=== PATIENT | female | born 1965 | race Two or more races ===

== ENCOUNTER 2019-05-08 14:56 | Emergency (ER) | payer OTHER ==
--- NOTE | 2019-05-08 15:02 | UC ---
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--- - History of Current Complaint Chief Complaint: UCGeneralIllness Stated Complaint: FLU SYMPTOMS Time Seen by Provider: 05/08/19 15:25 Hx Obtained From: Patient ?: No Onset/Duration: Sudden Onset, Lasting Days - 1 Severity Currently: Moderate Severity Initially: Moderate Associated Signs & Symptoms: Positive: Fever - subjective, Cough, Sore Throat, Nasal Congestion, Headache, Vomiting, Diarrhea - Allergy/Home Medications Allergies/Adverse Reactions: Allergies Allergy/AdvReac Type Severity Reaction Status Date / Time No Known Allergies Allergy Verified 05/08/19 15:10 Home Medications: Home Medications ALPRAZolam TAB* [Xanax TAB*] 0.25 mg PO BID 05/08/19 [History Confirmed 05/08/19 ] oxyCODONE TAB* [Roxycodone TAB 5 mg*] 15 mg PO Q6H PRN 05/08/19 [History Confirmed 05/08/19] PMH/Surg Hx/FS Hx/Imm Hx Previously Healthy: No GI/ History: Gastroesophageal Reflux Psychological History: Anxiety - Family History Known Family History: Positive: None - Social History Occupation: Employed Full-time Lives: With Family Alcohol Use: None Substance Use Type: None Review of Systems All Other Systems Reviewed And Are Negative: Yes Constitutional: Positive: Fever Skin: Positive: Negative Eyes: Positive: Negative ENT: Positive: Sore Throat, Ear Ache Respiratory: Positive: Cough Cardiovascular: Positive: Negative Gastrointestinal: Positive: Vomiting, Diarrhea, Nausea Genitourinary: Positive: Negative Motor: Positive: Negative Neurovascular: Positive: Negative Musculoskeletal: Positive: Arthralgia Neurological: Positive: Negative Psychological: Positive: Negative Is Patient Immunocompromised?: No Physical Exam Triage Information Reviewed: Yes Appearance: Well-Appearing, No Pain Distress, Well-Nourished Vital Signs Reviewed: Yes Eye Exam: Normal Eyes: Positive: Conjunctiva Clear ENT Exam: Normal ENT: Positive: Normal ENT inspection, Hearing grossly normal, Pharynx normal, TMs normal. Negative: Nasal congestion, Nasal drainage, Trismus, Muffled voice , Hoarse voice Dental Exam: Normal Neck exam: Normal Neck: Positive: Supple, Nontender Respiratory Exam: Normal Respiratory: Positive: Chest non-tender, Lungs clear, Normal breath sounds, No respiratory distress, No accessory muscle use Cardiovascular Exam: Normal Cardiovascular: Positive: RRR, No Murmur, Pulses Normal, Brisk Capillary Refill Abdominal Exam: Normal Abdomen Description: Positive: Nontender, No Organomegaly, Soft Musculoskeletal Exam: Normal Musculoskeletal: Positive: Strength Intact, ROM Intact, No Edema Neurological Exam: Normal Neurological: Positive: Alert, Muscle Tone Normal Psychological Exam: Normal Skin Exam: Normal Diagnostics - Laboratory Lab Results: strep and influenza a/b negative Flu Course/Dx - Course Course Of Treatment: patient is a cigarette smoker--will treat with Proventil and Zithromax--- patient is also out of routine meds for 3 weeks will rx all rx controlled--- referral to pcp provided - Differential Dx/Diagnosis Provider Diagnosis: Nicotine dependence with current use, Acute viral syndrome Discharge ED - Sign-Out/Discharge Documenting (check all that apply): Patient Departure All imaging exams completed and their final reports reviewed: No Studies - Discharge Plan Condition: Stable Disposition: HOME Prescriptions: Albuterol HFA INHALER* [Ventolin HFA Inhaler*] 2 puff INH Q4H PRN #1 mdi PRN Reason: cough Atorvastatin* [Lipitor 20 MG*] 20 mg PO DAILY #15 tab busPIRone TAB* [Buspar TAB*] 10 mg PO DAILY #15 tab hydrOXYzine HCL TAB* [Atarax TAB 50 MG *] 50 mg PO BID PRN #30 tab PRN Reason: Anxiety Ondansetron ODT TAB* [Zofran 4 MG Odt TAB*] 4 mg PO Q6H PRN #16 tab.odt MDD 4 PRN Reason: nausea Pantoprazole TAB * [Protonix TAB*] 40 mg PO DAILY #15 tab traZODone TAB* [Desyrel TAB*] 50 mg PO BEDTIME #15 tab Patient Education Materials: How to Stop Smoking (ED), Clear Liquid Diet (ED), Viral Syndrome (ED) Referrals: [facility] [Outside] - 7 Days - Billing Disposition and Condition Condition: STABLE Disposition: Home
[2019-05-08 15:10] VITALS: BP 128/74
[2019-05-08 15:36] LABS: Influenza A Molecular NEGATIVE (Negative); Influenza B Molecular NEGATIVE (Negative)
== END 2019-05-08 15:55 | disposition home or self-care (01) ==
LOC: UCEAST 14:56
DX: J02.9 Acute pharyngitis, unspecified (principal); R11.2 Nausea with vomiting, unspecified; R19.7 Diarrhea, unspecified; F41.9 Anxiety disorder, unspecified; H92.09 Otalgia, unspecified ear; R05 Cough; F17.200 Nicotine dependence, unspecified, uncomplicated; Z79.899 Other long term (current) drug therapy
CPT/HCPCS: 87651; 99202; G0463

== ENCOUNTER 2019-05-15 15:36 | Emergency (ER) | payer OTHER ==
[2019-05-15 16:03] VITALS: BP 126/68
--- NOTE | 2019-05-15 16:39 | UC ---
Respiratory Complaint HPI - HPI Summary HPI Summary: ABOUT 1 WEEK OF COUGH, CONGESTION, SORE THROAT, NAUSEA AND FATIGUE. WAS SEEN HERE 7 DAYS AGO AND TREATED FOR A VIRAL INFECTION WITH ALBUTEROL AND ZOFRAN. FLU AND STREP WERE NEG. SHE ALSO HAD HER CHRONIC MEDICATIONS REFILLED EXCEPT FOR THE CONTROLLED SUBSTANCES. SHE RETURNS TODAY STATING OVER THE PAST FEW DAYS SHE HAS LOST HER VOICE. IS REQUESTING A REFILL OF ZOFRAN. ALSO NOTICED A COLD SORE ON HER LOWER LIP THIS MORNING. STATES SHE DOES NOT RECALL EVER HAVING A COLD SORE BEFORE. - History of Current Complaint Chief Complaint: UCGeneralIllness Stated Complaint: SORE THROAT Time Seen by Provider: 05/15/19 15:57 Hx Obtained From: Patient Hx Last Menstrual Period: post Onset/Duration: Gradual Onset, Lasting Days, Still Present Timing: Constant Severity Initially: Moderate Severity Currently: Moderate Pain Intensity: 5 Pain Scale Used: 0-10 Numeric Character: Cough: Nonproductive Aggravating Factors: Nothing Alleviating Factors: Nothing Associated Signs And Symptoms: Positive: URI, Nasal Congestion, Hoarseness. Negative: Dyspnea, Fever, Wheezing - Allergies/Home Medications Allergies/Adverse Reactions: Allergies Allergy/AdvReac Type Severity Reaction Status Date / Time IVP dye Allergy can't Uncoded 05/15/19 15:50 breathe PMH/Surg Hx/FS Hx/Imm Hx Endocrine History: Dyslipidemia Respiratory History: COPD Psychological History: Depression - Surgical History Surgical History: Yes Surgery Procedure, Year, and Place: appy knee surgeries, sinus surgery, spinal surgery - Family History Known Family History: Positive: None - Social History Alcohol Use: None Substance Use Type: None Smoking Status (MU): Light Every Day Tobacco Smoker Review of Systems All Other Systems Reviewed And Are Negative: Yes Constitutional: Positive: Fatigue Skin: Positive: Negative ENT: Positive: Sore Throat, Nasal Discharge Respiratory: Positive: Cough Cardiovascular: Positive: Negative Gastrointestinal: Positive: Nausea Genitourinary: Positive: Negative Neurological: Positive: Headache Physical Exam Triage Information Reviewed: Yes Appearance: No Pain Distress, Well-Nourished, Ill-Appearing - FATIGUED Vital Signs: Initial Vital Signs Temp 97.9 F 05/15/19 15:44 Pulse 108 05/15/19 15:44 Resp 17 05/15/19 15:44 BP 126/68 05/15/19 15:44 Pulse Ox 98 05/15/19 15:44 Vital Signs Reviewed: Yes Eyes: Positive: Conjunctiva Clear ENT: Positive: Hearing grossly normal, Pharynx normal, Hoarse voice, Other - LEFT TM NORMAL. RIGHT TM OBSTRUCTED BY CERUMEN Neck: Positive: Supple, Nontender, No Lymphadenopathy Respiratory Exam: Normal Cardiovascular: Positive: Tachycardia Abdomen Description: Positive: Soft Musculoskeletal: Positive: No Edema Neurological: Positive: Alert Psychological: Positive: Age Appropriate Behavior Skin: Negative: Rashes Respiratory Course/Dx - Course Course Of Treatment: PATIENTS RESPIRATORY SYMPTOMS MAY BE VIRALLY MEDIATED BUT GIVEN THAT SHE HAS BEEN SICK FOR OVER A WEEK WE'LL GO AHEAD AND COVER WITH AN ANTIBIOTIC. PREDNISONE WILL HOPEFULLY HELP WITH HER SORE THROAT AND HOARSENESS. PATIENT ALSO HAS A COLD SORE ON HER LOWER LIP. SHE BOUGHT SOME ABREVA TODAY WHICH SHE MAY USE TOPICALLY. HAVE ALSO PRESCRIBED VALACYCLOVIR. PATIENT COUNSELED ON INFECTIOUS AN INCURABLE NATURE OF THIS CONDITION. AGAIN URGED PATIENT TO ESTABLISH WITH A PCP. WHILE SHE IS SEARCHING SHE WILL FOLLOW-UP WITH [facility] SHE WILL BE RUNNING OUT OF HER CHRONIC MEDICATIONS IN ABOUT A WEEK. - Differential Dx/Diagnosis Provider Diagnosis: Acute bronchitis, Laryngitis, Herpes labialis Discharge ED - Sign-Out/Discharge Documenting (check all that apply): Patient Departure All imaging exams completed and their final reports reviewed: No Studies - Discharge Plan Condition: Stable Disposition: HOME Prescriptions: Azithromycin 500 mg PO DAILY #5 tablet predniSONE TAB* [Deltasone 20 MG TAB*] 40 mg PO DAILY #10 tab ValACYclovir (*) [Valtrex 1 GM(*)] 2 gm PO BID #4 tab Patient Education Materials: Laryngitis (ED), Acute Bronchitis (ED), Oral Herpes Simplex Virus Infections (ED) Forms: *Work Release Referrals: [facility] [Outside] - 1 Week Additional Instructions: YOUR RESPIRATORY SYMPTOMS MAY BE VIRALLY MEDIATED BUT GIVEN THE LENGTH OF TIME YOU HAVE BEEN ILL WE WILL COVER YOU WITH ANTIBIOTICS. IF YOU START THE MEDICINE BE SURE TO TAKE IT FOR THE FULL COURSE. REST, HYDRATE, OTC MEDS NEEDED. WILL ALSO TREAT WITH PREDNISONE TO HELP WITH AIRWAY INFLAMMATION. ZOFRAN FOR NAUSEA REFILLED. SEEK FOLLOW-UP WITH YOUR PCP IF YOU ARE NOT IMPROVING OVER THE NEXT 1- 2 WEEKS. YOU HAVE A COLD SORE ON YOUR LOWER LIP. TAKE THE VALACYCLOVIR 2000 MG 2 TIMES A DAY 2 DOSES ONLY. BE AWARE THAT THIS CONDITION IS HIGHLY INFECTIOUS. AVOID ANY INTIMATE CONTACT. NO SHARING FOOD, DRINK, UTENSILS. ONCE YOU CONTRACT THIS VIRUS IT CANNOT BE CURED. IT STAYS DORMANT IN YOUR SYSTEM AND CAN REACTIVATE AT ANY TIME USUALLY WHEN YOU ARE RUNDOWN. THE MEDICINE WILL HELP YOUR BODY RESOLVE THE LESION A LITTLE QUICKER. OKAY TO USE TOPICAL ABREVA WELL. YOU MUST ESTABLISH WITH A PRIMARY CARE PHYSICIAN FOR YOUR CHRONIC CONDITIONS. CALL THE NUMBER BELOW FOR ASSISTANCE IN ESTABLISHING WITH A PCP An additional resource available to assist in finding the appropriate physician for your health care needs is the [facility] (Maile Obando). You may contact them by calling [phone]. - Billing Disposition and Condition Condition: STABLE Disposition: Home
== END 2019-05-15 16:38 | disposition home or self-care (01) ==
LOC: UCEAST 15:36
DX: J20.9 Acute bronchitis, unspecified (principal); J04.0 Acute laryngitis; B00.1 Herpesviral vesicular dermatitis; R11.0 Nausea; R51 Headache
CPT/HCPCS: 99212; G0463

== ENCOUNTER 2019-07-24 21:07 | Emergency (ER) | payer OTHER ==
--- OUTSIDE RECORDS SUMMARY | 2019-07-24 21:14 | XMS REPORT | Continuity of Care Document ---
:1965 External Reference #:[id number] Author Name RICKY Emanuel Address [address] [place] [address] Care Team Providers Name Role Phone Issac Joy MD - Family Care Team Information Paid Search Analyst Medicine Problems Description No Information Available Social History Type Date Description Comments Sex Unknown Tobacco Use Start: Unknown Less Than A Pack Per Day ETOH Use Occasional Tobacco Use Start: Unknown Patient is a current smoker, smokes every day Smoking Status Reviewed: 06/03/19 Patient is a current smoker, smokes every day Allergies, Adverse Reactions, Alerts Active Allergies Reaction Severity Comments Date IVP Dye Difficulty breathing, Hives 05/31/2019 Tree Pollen 05/31/2019 Cats 05/31/2019 Medications Active Medications SIG Qnty Indications Ordering Date Provider Xanax 1-2 tablets daily 60tabs F43.22 Otto See, 05/31/2019 0.25mg Tablets for anxiety M.D. Ambien 1 tablet as you 30tabs G47.00 Otto See, 05/31/2019 10mg Tablets need for sleeping M.D. Handicapped Permit For lifetime use 1units Lupe [place], 05/31/2019 due to inability M.D. to walk more then 200 feet without rest Albuterol Sulfate HFA take 1-2 puffs Unknown inhaled every 4 108(90Base) mcg/Act hours as needed Aerosol for shortness of breath Oxycodone HCL 1 by mouth every 6 90tabs Otto See, 15mg hours as needed M.D. Tablets for pain Hydroxyzine HCL one tablet two Unknown 50mg times a day as Tablets needed. Atorvastatin Calcium 1 by mouth every Unknown day 20mg Tablets Buspirone HCL take one tablet by Unknown 10mg mouth once a day Tablets Valacyclovir HCL 2 po twice a day Unknown 1gm Tablets Pantoprazole Sodium 1 by mouth every Unknown day 40mg Tablets DR Trazodone HCL take 1 tablet by Unknown 50mg mouth at bedtime Tablets as needed for sleep Immunizations Description No Information Available Vital Signs Date Vital Result Comment 05/31/2019 1:43pm BP Systolic 110 mmHg BP Diastolic 62 mmHg Heart Rate 90 /min Body Temperature 96.9 F Height 67 inches 5'7" Weight 169.00 lb BMI (Body Mass Index) 26.5 kg/m2 Results Description No Information Available Procedures Date Code Description Status 05/19/2017 95137913 Mammogram Completed 05/19/2016 [id number] Colonoscopy Completed Medical Devices Description No Information Available Encounters Description No Information Available Assessments Date Code Description Provider 05/31/2019 F43.22 Adjustment disorder with anxiety RICKY Emanuel 05/31/2019 G47.00 Insomnia, unspecified RICKY Emanuel 05/31/2019 M54.5 Low back pain RICKY Emanuel 05/31/2019 J06.9 Acute upper respiratory infection, unspecified RICKY Emanuel Plan of Treatment Future Appointment(s):06/14/2019 8:00 am - RICKY Emanuel at [facility]05/31/2019 - Padmini Gary, PAF43.22 Adjustment disorder with anxietyNew Medication:Xanax 0.25 mg - 1-2 tablets daily for anxietyComments:Restart Xanax - twice a day as needed Establish with [facility] or Advocacy WrdrceN88.00 Insomnia, unspecifiedNew Medication:Ambien 10 mg - 1 tablet as you need for sleepingComments:Ambien as you need for sleep, don't take with cvyudK80.5 Low back painComments:Use pain medication as you needJ06.9 Acute upper respiratory infection, unspecifiedComments:Warm teas with honey, lemonVitamin C - 2000 mg Elderberry lozengesCall if symptoms worsen or don't improveAllComments:PCMHMedication Management Patient Understands medications he 's taking? Yes Are there Barriers to Adherence? No Has the patient been asked about herbal supplements and therapies, and OTC meds? Yes Care Plan1. Patient has been queried about patient's goals/preferences and functional/lifestyle goals at relevant visits. Yes If relevant, describe: N/A2. Treatment goals as explained to the patient: above3. Are there barriers to meeting treatment goals? No If Yes, please describe:4. Self-Management goals as described to the patient: Yes As always, we strongly encourage a healthy diet and making physical activity a part of your every day life. If you have questions about how or where to start, please contact the office.Follow up: 2 weeks to discuss other issues and establish Functional Status Description No Information Available Mental Status Description No Information Available Referrals Description No Information Available
--- OUTSIDE RECORDS SUMMARY | 2019-07-24 21:14 | XMS REPORT | Continuity of Care Document ---
:1965 External Reference #:[id number] Author Name RICKY Emanuel Address [address] [place] [address] Care Team Providers Name Role Phone Issac Joy MD - Family Care Team Information News Writer [phone] Medicine Problems Description No Information Available Social [...] Medications SIG Qnty Indications Ordering Date Provider Physical Therapy evaluate and treat 1unrakesh [place] 06/21/2019 tight fibrous MD Benita tissue of the lower back Xanax 1-2 tablets daily 60tabs F43.22 Otto See, 05/31/2019 0.25mg Tablets for anxiety M.D. Ambien 1 tablet as you 30tabs G47.00 Otto See, 05/31/2019 10mg Tablets need for sleeping M.D. Handicapped Permit For lifetime use 1units Lupe [place], 05/31/2019 due to inability M.D. to walk [...] needed. Atorvastatin Calcium 1 by mouth every 90tabs Issac T. day MD Benita 20mg Tablets Buspirone HCL take one tablet by Unknown 10mg mouth once a day Tablets Valacyclovir HCL 2 po twice a day Unknown 1gm Tablets Pantoprazole Sodium 1 by mouth every 90tabs Issac T. day MD Benita 40mg Tablets DR Trazodone HCL take 1 tablet by Unknown 50mg mouth at bedtime Tablets as needed for sleep [place] Unknown [place]-3 Krill Oil Extra Strength 500mg Capsules Vitamin C take 1 tablet by Unknown 500mg Tablets mouth once daily supplement Vitamin E every day Unknown 1000Unit Capsules Immunizations Description No Information Available Vital Signs Date Vital Result Comment 06/21/2019 8:21am BP Systolic 120 mmHg BP Diastolic 78 mmHg Heart Rate 88 /min Body Temperature 96.0 F Respiratory Rate 20 /min Height 67 inches 5'7" Weight 170.50 lb BMI (Body Mass Index) 26.7 kg/m2 Results Test Acquired Date Facility Test Result H/L Range Note Lipid Profile 06/21/2019 [facility]) Cholesterol 145 mg/dL 120- 200 Triglycerides 133 mg/dL 30-200 HDL Cholesterol 44 mg/dL 30-85 LDL (Calculated) 74 CALC 0-129 VLDL Cholesterol 27 mg/dL 0-50 HDL Risk Factor 3.3 CALC 0.0-4.4 Comprehensive Metabolic 06/21/2019 [facility] Louise([facility]) Sodium 141 mEq/L 134-149 Prof Potassium 4.1 mEq/L 3.6-5.5 Chloride 102 mEq/L 94-112 Carbon Dioxide 21 mEq/L 21-32 Glucose 114 mg/dL High 70-105 BUN 19 mg/dL 6-26 Creatinine 0.6 mg/dL 0.6-1.4 BUN/Creat Ratio 31.7 CALC 8.0-36.0 Calcium 9.6 mg/dL 8.9-10.6 Total Protein 7.1 g/dL 6.4-8.3 Albumin 4.2 g/dL 3.8-5.5 Globulin 2.9 g/dL 2.0-4.8 A/G Ratio 1.4 CALC 0.6-2.3 Alk. Phosphatase 81 U/L 30-110 Alt (SGPT) 16 U/L 7-35 Ast (Sgot) 15 U/L 5-34 Total Bilirubin 0.4 mg/dL 0.2-1.3 GFR Non- >60 ml/min/1.73m^ >=60 GFR >60 ml/min/1.73m^ >=60 CBC Electronic Fma 06/21/2019 [facility] Louise(a) WBC 9.5 x10^3/UL 4.0- 10.0 RBC 4.27 x10^6/UL 3.93-6.00 HGB 12.7 g/dL 12.0-17.0 HCT 38 % 35-50 MCV 89.9 fL 80.0-95.0 MCH 29.7 pg 25.6-32.2 MCHC 33.1 g/dL 32.2-36.0 RDW-CV 14.4 % 11.6-14.4 PLT 375 x10^3/UL 163-400 MPV 9.2 fL Low 9.4-12.4 Handy# 5.56 x10^3/UL 1.56-6.13 Lymph# 3.00 x10^3/UL 1.18-3.74 [place]ilion# 0.54 x10^3/UL 0.24-0.82 Eos # 0.4 x10^3/UL 0.0-0.5 Baso # 0.05 x10^3/UL 0.01-0.08 Handy% 58.5 % 34.0-70.0 Lymph % 31.5 % 20.0-52.0 [place]% 5.7 % 5.0-12.0 Eos% 3.7 % 0.7-7.0 Baso% 0.5 % 0.1-1.2 Laboratory test 06/21/2019 Robbin Louise([facility]) Free T4 0.91 ng/dL 0.75- 1.54 finding TSH 1.07 mIU/L 0.50-6.00 Cece Panel-LD 06/21/2019 [facility] Antinuclear <pending> ([facility]) [address] Antibodies (Cece), [place] [address] By Ifa (904)- - Anti Dna (DS) <pending> Procedures Date Code Description Status 05/19/2017 [id number] Mammogram Completed 05/19/2016 [id number] Colonoscopy Completed Medical Devices Description No Information Available Encounters Type Date Location Provider Dx Diagnosis Office Visit 05/31/2019 [facility] Office Padmini Gary, F43.22 Adjustment 1:45p PA disorder with anxiety G47.00 Insomnia, unspecified M54.5 Low back pain J06.9 Acute upper respiratory infection, unspecified Assessments Date Code Description Provider 06/21/2019 F43.22 Adjustment disorder with anxiety RICKY Emanuel 06/21/2019 M54.5 Low back pain RICKY Emanuel 06/21/2019 G47.00 Insomnia, unspecified RICKY Emanuel 06/21/2019 L73.2 Hidradenitis suppurativa RICKY Emanuel 06/21/2019 Z00.01 Encounter for general adult medical examination RICKY Emanuel with abnormal findings 06/21/2019 Z12.31 Encounter for screening mammogram for malignant RICKY Emanuel neoplasm of breast 05/31/2019 F43.22 Adjustment disorder with anxiety RICKY Emanuel 05/31/2019 G47.00 Insomnia, unspecified RICKY Emanuel 05/31/2019 M54.5 Low back pain RICKY Emanuel 05/31/2019 J06.9 Acute upper respiratory infection, unspecified RICKY Emanuel Plan of Treatment Future Appointment(s):07/19/2019 8:30 am - RICKY Emanuel at [facility]1206/21/2019 - Padmini Gary, PAF43.22 Adjustment disorder with anxietyComments:Continue Xanax - twice a day as needed Establish with [facility] or Advocacy IzxybfL18.5 Low back painComments:Use pain medication as you need See physical therapy for massage to help get the knots out. Massage, heat all can help Follow up in 1 znlbkI71.00 Insomnia, hhpwtakfljkL12.2 Hidradenitis suppurativaComments:[facility] Encounter for general adult medical examination with abnormal findingsComments: Check labs gkyoaD43.31 Encounter for screening mammogram for malignant neoplasm of breastComments:Order mammogram today- you will receive a phone call [facility] [place]Address: [address], [place] [address] ?? Closes 4PMPhone: AllNew Medication:Physical Therapy - evaluate and treat tight fibrous tissue of the lower backComments:PCMHMedication Management Patient Understands medications he's taking? Yes Are there Barriers to Adherence? No Has the patient been asked about herbal supplements and therapies, and OTC meds ? Yes Care Plan1. Patient has been queried about patient's goals/ preferences and functional/lifestyle goals at relevant visits. Yes [...] or where to start, please contact the office. 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
[2019-07-24 21:18] VITALS: BP 117/73
[2019-07-24 21:40] LABS: Influenza A Molecular POSITIVE (Negative)
[2019-07-24] MEDS ORDERED: Oseltamivir CAP* 75 MG CAP PO ONE ×2 (21:46)
--- NOTE | 2019-07-24 21:49 | UC ---
FLU HPI - HPI Summary HPI Summary: ONSET YESTERDAY OF LOW GRADE FEVER, SORE THROAT, EAR PAIN, BODY ACHES, FATIGUE AND HEADACHE. HAS BEEN COUGHING AND CONGESTED FOR A FEW DAYS. NO FLU SHOT THIS SEASON. - History of Current Complaint Chief Complaint: UCRespiratory Stated Complaint: FEVER & CONGESTION Time Seen by Provider: 07/24/19 21:24 Hx Obtained From: Patient Hx Last Menstrual Period: post Onset/Duration: Gradual Onset, Lasting Days, Still Present Severity Currently: Moderate Severity Initially: Moderate Pain Intensity: 9 Pain Scale Used: 0-10 Numeric Associated Signs & Symptoms: Positive: Fever, Myalgia, Cough, Sore Throat, Nasal Congestion, Headache - Allergy/Home Medications Allergies/Adverse Reactions: Allergies Allergy/AdvReac Type Severity Reaction Status Date / Time cat dander Allergy hives, red Verified 07/24/19 21:18 eyes pollen extracts Allergy hives, red Verified 07/24/19 21:18 eyes IVP dye Allergy can't Uncoded 07/24/19 21:18 breathe Home Medications: Home Medications ALPRAZolam TAB* [Xanax TAB*] 0.25 mg PO BID 05/08/19 [History Confirmed 07/24/19 ] Albuterol HFA INHALER* [Ventolin HFA Inhaler*] 2 puff INH Q4H PRN #1 mdi [Rx Confirmed 07/24/19] Atorvastatin* [Lipitor 20 MG*] 20 mg PO DAILY #15 tab 05/08/19 [Rx Confirmed 12/05] Pantoprazole TAB * [Protonix TAB*] 40 mg PO DAILY #15 tab 05/08/19 [Rx Confirmed 07/24/19] busPIRone TAB* [Buspar TAB*] 10 mg PO DAILY #15 tab 05/08/19 [Rx Confirmed 07/23] hydrOXYzine HCL TAB* [Atarax TAB 50 MG *] 50 mg PO BID PRN #30 tab 05/08/19 [Rx Confirmed 07/24/19] oxyCODONE TAB* [Roxycodone TAB 5 mg*] 15 mg PO Q6H PRN 05/08/19 [History Confirmed 07/24/19] traZODone TAB* [Desyrel TAB*] 50 mg PO BEDTIME #15 tab 05/08/19 [Rx Confirmed ] ValACYclovir (*) [Valtrex 1 GM(*)] 2 gm PO BID #4 tab 05/15/19 [Rx Confirmed 12/05] Ibuprofen TAB* [Advil TAB*] 400 mg PO PRN 07/24/19 [History] Ondansetron ODT TAB* [Zofran Odt TAB*] 4 mg PO Q6H PRN #20 tab.odt 07/24/19 [Rx] Ondansetron TAB* [Zofran 4 MG Tab*] 4 mg PO PRN 07/24/19 [History] Oseltamivir CAP* [Tamiflu CAP*] 75 mg PO BID #8 cap 07/24/19 [Rx] Phenylephrine/Dm/Acetaminop/GG [Tylenol Cold-Flu Severe Caplet] 1 each PO PRN [History] guaiFENesin ER TAB [Mucinex*] PRN 07/24/19 [History] PMH/Surg Hx/FS Hx/Imm Hx Previously Healthy: Yes - Surgical History Surgical History: Yes Surgery Procedure, Year, and Place: appendectomy, four knee surgeries, sinus surgery, spinal surgery - Family History Known Family History: Positive: None - Social History Alcohol Use: Occasionally Substance Use Type: None Smoking Status (MU): Current Every Day Smoker Type: Cigarettes Amount Used/How Often: 1/2 ppd Review of Systems All Other Systems Reviewed And Are Negative: Yes Constitutional: Positive: Fever, Chills, Fatigue ENT: Positive: Sore Throat, Ear Ache, Nasal Discharge Respiratory: Positive: Cough Cardiovascular: Positive: Negative Gastrointestinal: Positive: Nausea Musculoskeletal: Positive: Myalgia Neurological/Mental Status: Positive: Headache Physical Exam Triage Information Reviewed: Yes Appearance: Well-Appearing, No Pain Distress, Well-Nourished Vital Signs: Initial Vital Signs Temp 98 F 07/24/19 21:12 Pulse 113 07/24/19 21:12 Resp 18 07/24/19 21:12 BP 117/73 07/24/19 21:12 Pulse Ox 100 07/24/19 21:12 Laboratory Tests 07/24/19 21:36 Influenza A (Rapid) Positive H Vital Signs Reviewed: Yes Eyes: Positive: Conjunctiva Clear ENT: Positive: Hearing grossly normal, Pharyngeal erythema, TMs normal Neck: Positive: Supple, Nontender, No Lymphadenopathy Respiratory Exam: Normal Cardiovascular: Positive: Tachycardia Abdomen Description: Positive: Soft Musculoskeletal: Positive: No Edema Neurological: Positive: Alert Psychological: Positive: Age Appropriate Behavior Skin: Negative: Rashes Flu Course/Dx - Course Course Of Treatment: SWAB POSITIVE INFLUENZA A. TAMIFLU TWICE DAILY FOR 5 DAYS. REST, HYDRATE, OTC MEDS NEEDED FOR DISCOMFORT. FOLLOW-UP IF NOT IMPROVING EXPECTED. - Differential Dx/Diagnosis Provider Diagnosis: Influenza A Discharge ED - Sign-Out/Discharge Documenting (check all that apply): Patient Departure All imaging exams completed and their final reports reviewed: No Studies - Discharge Plan Condition: Stable Disposition: HOME Prescriptions: Ondansetron ODT TAB* [Zofran Odt TAB*] 4 mg PO Q6H PRN #20 tab.odt PRN Reason: Nausea/Vomiting Oseltamivir CAP* [Tamiflu CAP*] 75 mg PO BID #8 cap Patient Education Materials: Influenza (ED) Forms: *Work Release Referrals: Issac Joy MD [Primary Care Provider] - If Needed Additional Instructions: SWAB POSITIVE FOR INFLUENZA A. TAMIFLU TWICE DAILY FOR 5 DAYS. OTC MEDS NEEDED FOR FEVER, BODY ACHES. STAY WELL HYDRATED AND RESTED. SEEK FOLLOW-UP IF YOU ARE NOT IMPROVING EXPECTED. - Billing Disposition and Condition Condition: STABLE Disposition: Home
== END 2019-07-24 21:57 | disposition home or self-care (01) ==
LOC: UCEAST 21:07
DX: J10.1 Influenza due to other identified influenza virus with other respiratory manifestations (principal); F17.210 Nicotine dependence, cigarettes, uncomplicated; Z91.09 Other allergy status, other than to drugs and biological substances; Z91.041 Radiographic dye allergy status
CPT/HCPCS: 99213; A9270-GY; G0463